=== PATIENT | female | born 1990 | race American Indian/Alaskan Native ===

== ENCOUNTER 2018-05-30 03:44 | Emergency (ER) | payer OTHER ==
[2018-05-30 03:49] VITALS: BP 107/76
[2018-05-30] MEDS ORDERED: NACL 0.9% 1000 ML 1,000 ML IV ONE (04:17)
[2018-05-30] MEDS ORDERED: ZOFRAN IV ONE (04:17)
[2018-05-30 04:20] LABS: Basophils % (Auto) 0.6 % (0.0-1.8); Eosinophils # (Auto) 0.2 K/mm3 (0.0-0.4); Eosinophils % (Auto) 2.6 % (0.0-4.3); Hematocrit 39.2 % (30.3-42.9); Hemoglobin 13.4 gm/dl (10.1-14.3); Lymphocytes % (Auto) 41.9 % (13.4-35.0); Mean Corpuscular HGB Conc 34 % (30-34); Mean Corpuscular Volume 80 fl (79-97); Monocytes # (Auto) 0.9 K/mm3 (0.0-0.8); Monocytes % (Auto) 12.6 % (0.0-7.3); Platelet Count 318 K/mm3 (140-440); Red Blood Count 4.88 M/mm3 (3.65-5.03); Red Cell Distribution Width 14.8 % (13.2-15.2)
--- NOTE | 2018-05-30 04:25 | Emergency Department Report ---
ED Abdominal Pain HPI - General Chief Complaint: Abdominal Pain Stated Complaint: at the R Time Seen by Provider: 05/30/18 04:16 Source: patient, EMS Mode of arrival: Ambulatory Limitations: No Limitations - History of Present Illness Initial Comments: pt wilmer 28 y/o aaf G3, P2, A0 who is states she LMP Mar 2018 who presents for abdominal pain x 1 week , right flank radiating to superpubic , pt denies fever no chills no vaginal bleeding no vaginal discharge no back pain no cramping, symptoms are relieved by nothing, pt denies dysuria or frequency no hematuria, pt states secondary complaint of dental pain to #2, there is no facial swelling no throat or ear pain , pain is rated as 4/10 MD Complaint: abdominal pain (epigastric pain ), other (nausea and vomiting ) Onset/Timin -: week(s) Location: suprapubic, R flank Radiation: none, suprapubic, R flank Migration to: no migration Severity: moderate Severity scale (0 -10): 5 Quality: burning, other Consistency: intermittent Improves With: nothing Worsens With: nothing Associated Symptoms: denies: nausea, vomiting, diarrhea, fever, chills, constipation, dysuria, hematemesis, hematochezia, melena, hematuria, anorexia, syncope - Related Data LMP Date: 03/28/18 LMP (females 10-50): 1 month Previous Rx's Medication Instructions Recorded Last Taken Type Amoxicillin/Potassium Clav 1 each PO BID 10 Days #20 tablet 05/30/18 Unknown Rx [Augmentin 875-125 Tablet] Chlorhexidine Mouthwash [Peridex] 15 ml MM BID #1 bottle 05/30/18 Unknown Rx traMADol [Ultram] 50 mg PO Q6HR PRN #12 tablet 05/30/18 Unknown Rx Allergies Allergy/AdvReac Type Severity Reaction Status Date / Time No Known Allergies Allergy Verified 05/30/18 03:48 ED Review of Systems ROS: Stated complaint: ABDOMINAL PAIN Other details as noted in HPI Constitutional: denies: chills, fever Eyes: denies: eye pain, eye discharge, vision change ENT: dental pain. denies: ear pain, throat pain Respiratory: denies: cough, shortness of breath, wheezing Cardiovascular: as per HPI Endocrine: no symptoms reported Gastrointestinal: denies: abdominal pain, nausea, vomiting, diarrhea, constipation, hematemesis, melena, hematochezia Genitourinary: dysuria, abnormal menses. denies: urgency, frequency, hematuria, discharge Musculoskeletal: back pain. denies: joint swelling, arthralgia Skin: denies: rash, lesions Neurological: denies: headache, weakness, paresthesias, vertigo Psychiatric: denies: anxiety, depression Hematological/Lymphatic: denies: easy bleeding, easy bruising ED Past Medical Hx - Past Medical History Previous Medical History?: No - Surgical History Past Surgical History?: No - Social History Smoking Status: Never Smoker Substance Use Type: None - Medications Home Medications: Home Medications Medication Instructions Recorded Confirmed Last Taken Type Amoxicillin/Potassium Clav 1 each PO BID 10 Days #20 tablet 05/30/18 Unknown Rx [Augmentin 875-125 Tablet] Chlorhexidine Mouthwash [Peridex] 15 ml MM BID #1 bottle 05/30/18 Unknown Rx traMADol [Ultram] 50 mg PO Q6HR PRN #12 tablet 05/30/18 Unknown Rx ED Physical Exam - General Limitations: No Limitations General appearance: alert, in no apparent distress - Head Head exam: Present: atraumatic, normocephalic, normal inspection - Eye Eye exam: Present: normal appearance, PERRL, EOMI Pupils: Absent: normal accommodation - ENT ENT exam: Present: normal orophraynx, mucous membranes moist, TM's normal bilaterally, normal external ear exam - Expanded ENT Exam Expanded Teeth exam: Present: dental caries, fractured tooth #, dental tenderness # (2) Throat exam: Positive: normal inspection. Negative: tonsillar erythema, tonsillomegaly, tonsillar exudate, R peritonsillar mass, L peritonsillar mass - Neck Neck exam: Present: normal inspection, full ROM. Absent: tenderness, lymphadenopathy, thyromegaly - Respiratory Respiratory exam: Present: normal lung sounds bilaterally. Absent: respiratory distress, wheezes, stridor, chest wall tenderness - Cardiovascular Cardiovascular Exam: Present: regular rate, normal rhythm, normal heart sounds. Absent: systolic murmur, diastolic murmur, rubs, gallop - GI/Abdominal GI/Abdominal exam: Present: soft, normal bowel sounds. Absent: distended, tenderness, guarding, rebound, rigid, bruit, hernia - Rectal Rectal exam: Present: deferred - External exam: Present: other (exam deferred ) - Extremities Exam Extremities exam: Present: normal inspection - Back Exam Back exam: Present: normal inspection, full ROM. Absent: tenderness, CVA tenderness (R), CVA tenderness (L), muscle spasm, paraspinal tenderness, vertebral tenderness, rash noted - Neurological Exam Neurological exam: Present: CN II-XII intact - Psychiatric Psychiatric exam: Present: normal affect, normal mood - Skin Skin exam: Present: warm, dry, intact, normal color. Absent: rash ED Course Vital Signs 05/30/18 03:46 Temperature 97.8 F Pulse Rate 86 Respiratory 18 Rate Blood Pressure 107/76 O2 Sat by Pulse 100 Oximetry ED Medical Decision Making - Lab Data Result diagrams: 05/30/18 03:55 05/30/18 03:55 Labs 05/30/18 05/30/18 05/30/18 03:55 03:55 03:55 WBC 7.2 RBC 4.88 Hgb 13.4 Hct 39.2 MCV 80 MCH 28 MCHC 34 RDW 14.8 Plt Count 318 Lymph % (Auto) 41.9 H Scott % (Auto) 12.6 H Eos % (Auto) 2.6 Baso % (Auto) 0.6 Lymph # 3.0 Scott # 0.9 H Eos # 0.2 Baso # 0.0 Seg Neutrophils % 42.3 Seg Neutrophils # 3.0 Sodium 142 Potassium 4.0 Chloride 105.5 Carbon Dioxide 27 Anion Gap 14 BUN 7 Creatinine 0.8 Estimated GFR > 60 BUN/Creatinine Ratio 9 Glucose 79 Calcium 8.8 Total Bilirubin < 0.20 AST 17 ALT 16 Alkaline Phosphatase 59 Total Protein 6.9 Albumin 3.8 L Albumin/Globulin Ratio 1.2 Lipase 36 HCG, Quant < 2 Urine Color Urine Turbidity Urine pH Ur Specific [place] Urine Protein Urine Glucose (UA) Urine Ketones Urine Blood Urine Nitrite Urine Bilirubin Urine Urobilinogen Ur Leukocyte Esterase Urine WBC (Auto) Urine RBC (Auto) U Epithel Cells (Auto) Urine Bacteria (Auto) Hyaline Casts Urine Mucus 05/30/18 04:50 WBC RBC Hgb Hct MCV MCH MCHC RDW Plt Count Lymph % (Auto) Scott % (Auto) Eos % (Auto) Baso % (Auto) Lymph # Scott # Eos # Baso # Seg Neutrophils % Seg Neutrophils # Sodium Potassium Chloride Carbon Dioxide Anion Gap BUN Creatinine Estimated GFR BUN/Creatinine Ratio Glucose Calcium Total Bilirubin AST ALT Alkaline Phosphatase Total Protein Albumin Albumin/Globulin Ratio Lipase HCG, Quant Urine Color Yellow Urine Turbidity Hazy Urine pH 5.0 Ur Specific [place] 1.024 Urine Protein <15 mg/dl Urine Glucose (UA) Neg Urine Ketones Neg Urine Blood Neg Urine Nitrite Neg Urine Bilirubin Neg Urine Urobilinogen < 2.0 Ur Leukocyte Esterase Sm Urine WBC (Auto) 35.0 H Urine RBC (Auto) 7.0 U Epithel Cells (Auto) 12.0 Urine Bacteria (Auto) 1+ Hyaline Casts 1 Urine Mucus Few - Medical Decision Making UA: pos for leuk, wbc, will tx for uti, dental pain to number 3, relieved by lidocaine viscous plan, dc to home with rx augmentin , peridex, ultram pt will follow up with [facility] today for dental carries uti t x with [facility] ivpb in pt will be dc'd to home in stable condition after completion of ivfs, pt verbalized agreement and understanding of discharge plan. Critical care attestation.: If time is entered above; I have spent that time in minutes in the direct care of this critically ill patient, excluding procedure time. ED Disposition Clinical Impression: Dental caries UTI (urinary tract infection) Qualifiers: Urinary tract infection type: acute cystitis Hematuria presence: without hematuria Qualified Code(s): N30.00 - Acute cystitis without hematuria Disposition: DC-01 TO HOME OR SELFCARE Is pt being admited?: No Does the pt Need Aspirin: No Condition: Stable Instructions: Dental Caries (ED), Urinary Tract Infection in Women (ED), Abdominal Pain (ED) Prescriptions: Amoxicillin/Potassium Clav [Augmentin 875-125 Tablet] 1 each PO BID 10 Days #20 tablet Chlorhexidine Mouthwash [Peridex] 15 ml MM BID #1 bottle traMADol [Ultram] 50 mg PO Q6HR PRN #12 tablet PRN Reason: Pain Referrals: PRIMARY CARE, [Primary Care Provider] - 3-5 Days [facility] [Outside] - 3-5 Days Forms: Work/School Release Form(ED) Time of Disposition: 06:22
[2018-05-30] MEDS ORDERED: TYLENOL PO ONE (04:35)
[2018-05-30 04:42] LABS: Alanine Aminotransferase 16 units/L (7-56); Albumin 3.8 g/dL (3.9-5); BUN/Creatinine Ratio 9; Blood Urea Nitrogen 7 mg/dL (7-17); Calcium 8.8 mg/dL (8.4-10.2); Hemolysis Index 7
[2018-05-30] MEDS ORDERED: LIDOCAINE VISCOUS 2% PO ONE (04:59)
[2018-05-30] MEDS ORDERED: D5NS 1,000 ML IV SCH (05:00)
[2018-05-30] MEDS ORDERED: LIDOCAINE VISCOUS 2% ONE (05:01)
[2018-05-30 05:22] LABS: Bacteria,Urine 1+ /HPF (Negative); Bilirubin,Urine NEG (Negative); Blood,Urine NEG (Negative); Color,Urine Yellow (Yellow); Hyaline Casts,Urine 1 /LPF; Mucus,Urine FEW /HPF; Protein,Urine <15 mg/dL mg/dL (Negative); Urobilinogen,Urine < 2.0 mg/dL (<2.0)
[2018-05-30] MEDS ORDERED: ROCEPHIN/NS 1 GM/50 ML 1 GM/50 ML BAG IV ONE (06:19)
== END 2018-05-30 06:50 | disposition home or self-care (01) ==
LOC: ED 03:44
DX: O99.611 Diseases of the digestive system complicating pregnancy, first trimester (principal); O23.11 Infections of bladder in pregnancy, first trimester; K02.9 Dental caries, unspecified; Z3A.09 9 weeks gestation of pregnancy
CPT/HCPCS: 36415; 80053; 81001; 83690; 84702; 85025; 96361; 96365; 96375; 99284; J0696; J2405; J7030; J7042